=== PATIENT | male | born 1970 | race Caucasian/White ===

== ENCOUNTER 2023-04-04 19:05 | Emergency (ER) | payer OTHER, SELFPAY ==
[2023-04-04 19:35] VITALS: BP 136/77; PULSE 71; RESP 18; TEMP 36.4; O2SAT 100
--- NOTE | 2023-04-04 19:35 | ED.URI ---
HPI - URI/Sore Throat General Chief Complaint: Upper Respiratory Infection Stated Complaint: covid + home test Time Seen by Provider: 04/04/23 19:27 Source: patient Mode of arrival: ambulatory Limitations: no limitations History of Present Illness HPI Narrative: Navdeep is a 53-year-old male patient presenting to the clinic today with complaints testing positive for COVID home. He reports symptoms started on Friday. States he is needing a work note since he has COVID so he will not lose points at work. He denies any chest pain or shortness of breath. Only symptoms are congestion and fatigue. MD elicited complaint: sore throat and nasal congestion Related Data Home Medications Medication Instructions Recorded Confirmed No Home Medications 04/04/23 04/04/23 Allergies Allergy/AdvReac Type Severity Reaction Status Date / Time No Known Allergies Allergy Mild Verified 05/04/10 13:13 Review of Systems Review of Systems: Pertinent positives per HPI. Patient denies any fever, chills, rash, headache, visual changes, dizziness, shortness of breath, chest pain, palpitations, nausea, vomiting, diarrhea, constipation, abdominal pain, or any urinary issues. PMFSH Comments At the time of my signature, I reviewed and agree with the nursing past medical, surgical, social, and family history. There is no relevant family history pertinent to the patient complaint. Exam Narrative: General: Well-developed, well nourished, in no apparent distress Head: Normocephalic, atraumatic Eyes: Pupils equally round and reactive to light bilaterally, EOM intact, sclera and conjunctive clear, no discharge, lids normal Ears: TMs intact and clear, ear canals clear, no drainage, grossly hearing normal. Nose: Nares patent, clear discharge, no inflammation, no sinus tenderness. Mouth: Oral pharynx without lesions or masses, good dentition, MMM. Neck: Supple, trachea midline, no enlargement of anterior or posterior cervical nodes, no thyroid masses or goiter palpable. Cardio: Regular rate and rhythm, s1 and s2 normal, no murmur appreciated. Resp: Clear to auscultation bilaterally, no rhonchi, rales, wheezing or rubs Course Course Emergency Course: Portions of this record may have been created with voice recognition software. Level of Care: Express Care Visit Vital Signs Vital signs: Vital signs reviewed MDM - URI/Sore Throat MDM Narrative Medical decision making narrative: At the time of visit patient is resting on the exam table. Work note was given. Supportive measures were discussed with the patient he voiced understanding discharge instructions agrees to treatment plan. Differential Diagnosis Differential diagnosis: Likely upper respiratory infection, otitis media, sinusitis, viral infection, bronchitis, influenza, pharyngitis and other (COVID) Discharge Plan Discharge Clinical Impression: COVID-19 Patient Disposition: Home, Self-Care Condition: Stable Instructions: Antibiotic Form, How to Recover from COVID-19 at Home (ED) Additional Instructions: May take DayQuil/NyQuil for cold/flu symptoms Increase fluids and stay well hydrated Tylenol/motrin for pain/fever Flonase and OTC antihistamines as directed Vicks vapor rub to open sinuses Sinus rinses for congestion Cepacol spray, cough drops, throat lozenges, warm tea with honey/lemon, gargle salt water to soothe throat BRAT diet for diarrhea Clear liquids x 24 hours then advance as tolerated for nausea/vomiting Go to the ED if you develop a worsening in your condition- high fever not controlled by Tylenol or Motrin, dehydration, weakness, lethargy, shortness of breath, or chest pain. Follow up with your PCP in 3-5 days if symptoms persist. Prescriptions: No Action No Home Medications Follow-up/Referrals: PHYSICIAN,GANG PUNCH OPERATOR [Primary Care Provider] - Stand Alone Forms: Work/School Release IP Time of Disposition: 19:3
== END 2023-04-04 19:43 | disposition home or self-care (01) ==
PROVIDERS: Emergency Provider Nurse Practitioner Family
DX: U07.1 COVID-19 (principal)
CPT/HCPCS: 99211; G0463

== ENCOUNTER 2023-10-16 09:25 | Emergency (ER) | payer BC, SELFPAY ==
--- NOTE | 2023-10-16 09:33 | ED.EAR ---
HPI - Ear Problem General Chief complaint: Ear Stated complaint: Left Ear Irritation Time Seen by Provider: 10/16/23 09:33 Source: patient, RN notes reviewed and old records reviewed Mode of arrival: ambulatory Limitations: no limitations History of Present Illness HPI Narrative: 53-year-old male to Express Care for complaint of left ear pain for 2 days. Patient endorses upper respiratory symptoms that began 10 days ago which have recently improved aside from left ear. Patient denies headache, sore throat, cough, GI complaints. Related Data Home Medications Medication Instructions Recorded Confirmed No Home Medications 04/04/23 10/16/23 Allergies Allergy/AdvReac Type Severity Reaction Status Date / Time No Known Allergies Allergy Mild Verified 10/16/23 09:40 Review of Systems Review of Systems: All systems reviewed & are unremarkable except as noted in HPI and below Constitutional: Constitutional: Reports no additional constitutional complaints Eyes: Eyes: Reports no additional eye complaints ENT: Reports otalgia ( left), Denies headache(s), Denies nasal discharge and Denies sore throat Cardiovascular: Cardiovascular: Reports no additional cardiovascular complaints, Denies chest pain and Denies dyspnea Respiratory: Respiratory: Reports no additional respiratory complaints, Denies cough and Denies dyspnea Musculoskeletal: Musculoskeletal: Reports no additional musculoskeletal complaints Neurologic: Reports system reviewed and no additional complaints, except as documented Psychiatric: Psychiatric: Reports no additional psychiatric complaints PMFSH Comments At the time of my signature, I reviewed and agree with the nursing past medical, surgical, social, and family history. There is no relevant family history pertinent to the patient complaint. Exam Const: General: cooperative, healthy appearing, comfortable, no acute distress, alert and well nourished Nutritional Appearance: well nourished Orientation/consciousness: patient oriented x3 Limitations: no limitations HENMT: Head: normal to inspection Ears: external ears normal, TM normal on the right and TM abnormal dull and with fluid behind the TM on the left and diffuse Face/Nose/Sinus: Normal external nose present, Normal nares present, normal facial exam, No erythema and No edema Face and sinus: normal facial exam, no erythema and no edema Mouth: Yes Normal oral and palatal mucosa present Eyes: General: appearance normal, both eyes and all related structures Neck: Neck: normal visual inspection, full ROM and no meningeal signs Lymphatic: no lymphadenopathy noted and no lymphedema noted Chest: Chest palpation & inspection: normal inspection of the chest Resp: Effort & Inspection: normal respiratory effort and able to speak in complete sentences Auscultation: clear to auscultation bilaterally Cardio: Jugular venous distension: no JVD Rate: regular rate Rhythm: regular rhythm Back/Spine/Pelvis: Cervical Spine: cervical ROM normal Skin: General skin exam: normal color, no rashes or lesions noted and turgor normal Neuro: General: patient oriented x3, gait normal, moves all extremities and no meningeal signs Speech: normal speech Gait exam (Neuro): Normal gait present Extrem: General: normal to inspection, full ROM and capillary refill normal Psych: Appearance: grossly normal and well kempt Course Course Emergency Course: Some parts of this dictation were generated by voice recognition software and may contain typographical and/or grammatical inaccuracies. Level of Care: Express Care Visit Vital Signs Vital signs: Vital Signs Temperature 37.1 C 10/16/23 09:40 Pulse Rate 85 10/16/23 09:40 Respiratory Rate 20 10/16/23 09:40 Blood Pressure 127/79 10/16/23 09:40 Pulse Oximetry 100 10/16/23 09:40 Oxygen Delivery Room Air 10/16/23 09:40 Temperature 37.1 C 10/16/23 09:40 Pulse Rate 85 10/16/23 09:40
[2023-10-16 09:40] VITALS: BP 127/79; PULSE 85; RESP 20; TEMP 37.1; O2SAT 100
== END 2023-10-16 09:55 | disposition home or self-care (01) ==
PROVIDERS: Emergency Provider Nurse Practitioner Family
DX: J06.9 Acute upper respiratory infection, unspecified (principal)
CPT/HCPCS: 99211; G0463

== ENCOUNTER 2024-08-27 03:01 | Day surgery (SDC) | payer BC, SELFPAY ==
[2024-08-26 13:09] VITALS: BMI 30.4
--- NOTE | 2024-08-26 13:14 | PC.NURSE ---
Report to the Outpatient Waiting Room, entrance under the green pavilion located off [facility], at time _1130_ on date _[phone]_. Planned Procedure Time: _130pm_.? Time changes happen often and if your time is changed the preop area will call you the afternoon before. - You and your visitor will be asked to self-screen and do not enter if you have any COVID symptoms. Please call surgeon if you need to reschedule. - A mask is optional within the hospital at this time. Patients may have clear liquids (water, carbonated beverages, clear teas, apple juice) until 3 hours prior to surgery with a maximum of 20 ounces. - No food from midnight until time of surgery and no smoking. This includes no chewing gum, candy or mints. Take only the following medications with a SIP of water on the morning of surgery: __Hydrocodone if needed.___ DO NOT STOP ANY OF YOUR OTHER PRESCRIPTION MEDICATIONS PRIOR TO SURGERY EXCEPT THE FOLLOWING Medications to discontinue per physician ____Supplements____ Date to take last dose___Stop now.___ Please no make-up, nail italian, hairspray, perfume, deodorant, or body powder the day of surgery.? No jewelry (including any body piercings) or valuables the day of surgery, leave them at home.? Please take a shower or bath the night before, or the morning of, surgery with an antibacterial soap.? Wear comfortable, loose fitting clothing. - Jewelry must be removed prior to entering the operating room.? Rings and piercings that are not removed may be cut off. - The hospital will not accept responsibility for valuables.? - Please leave all valuables, including medications, at home the day of surgery. If you are going home after surgery, a licensed batch mixing truck driver must drive you home.? - NO public transportation without another adult if you receive anesthesia. - We recommend that an adult stay with you for 24 hours following discharge. - We also recommend that you do not drive, make important decision, drink alcoholic beverages, or take any drugs that were not prescribed by your health care provider for at least 24 hours after your discharge time. Follow any additional instructions given to you from your surgeon. Telephone instructions given to __Navdeep___and asked if any additional questions and then verbalized understanding. Patient advised to call surgeon office or pre surgery nurse liaison [phone] if any additional questions.
[2024-08-27] VITALS (9 sets, daily range): BP systolic 137–163; BP diastolic 75–99; PULSE 65–77; RESP 12–15; TEMP 36.4–36.7; O2SAT 94–99
--- NOTE | ~2024-08-27 | XR_ITS ---
EXAMINATION: XR surgery orthopedic DATE: 08/27/2024 15:49 INDICATION: ORIF left wrist fracture TECHNIQUE: 3 fluoroscopic images of the left wrist were obtained during procedure performed by Dr. Ravi fishman. Radiologist was not present for the imaging or procedure. The amount of fluoroscopy time used during this procedure was 8.4 minutes. Total DAP was 3.52 Gycm^2. COMPARISON: 08/26/2024 FINDINGS: Interval open reduction internal fixation of the previously seen comminuted intra-articular distal le ft radial fracture which appears in near-anatomic alignment with volar T plate and screw fixation. Ne utral tilt of the distal articular surface with no evident fracture gap or incongruity at the articul ar cortex. No other fractures identified. Visualized joint spaces are normal. IMPRESSION: 1. Near-anatomic alignment with reduction and internal fixation of an intra-articular distal left rad ial fracture. Reviewed, dictated and finalized at location A. AIR WARFARE OPERATIONS OFFICER IMPRESSION: 1. Near-anatomic alignment with reduction and internal fixation of an intra-art icular distal left radial fracture.
[2024-08-27] MEDS: ACETAMINOPHEN 500 MG TABLET 1000 MG PO (12:30)
[2024-08-27] MEDS: CELECOXIB 200 MG CAPSULE PO (12:30)
[2024-08-27] MEDS: LACTATED RINGERS 1,000 ML 30 ML IV CONT ×2 (12:30→15:57)
--- NOTE | 2024-08-27 13:12 | P.PNAN_ITS ---
Anes - Initial Pre Proc Eval Procedure: Operation Date: 08/27/24 13:30 Proposed Procedures p Open Reduction Internal Fixation Left Wrist - Elmo Rosenberg MD Date/Time: 08/27/24 13:12 Surgeon: Elmo Rosenberg MD Pre Op Diagnosis: Left Distal Radius Fracture Patient Data Age: 54 Gender: M Height: 1.73 m Weight: 89.1 kg Last Vital Signs Temp 36.7 C 08/27/24 12:30 Pulse 70 08/27/24 12:30 Resp 14 08/27/24 12:30 BP 148/75 H 08/27/24 12:30 Pulse Ox 99 08/27/24 12:30 O2 Del Method Room Air 08/27/24 12:30 Allergies Allergy/AdvReac Type Severity Reaction Status Date / Time No Known Allergies Allergy Mild Verified 08/27/24 13:01 Home Medications ?Medication ?Instructions ?Recorded ?Confirmed ?Type hydrocodone 5 mg-acetaminophen 325 1 tablet PO Q8H PRN pain 0 days 08/20/24 08/26/24 Rx mg tablet #20 tabs omega 1-nle-usg-fish oil 1,000 mg 1 cap PO DAILY 08/26/24 08/27/24 History (120 mg-180 mg) capsule (Fish Oil) Patient hx anesthesia problems: none Family hx anesthesia problems: none Results Review: All pre-operative results and documents have been reviewed as part of the pre- operative evaluation. [facility] Social History Social History (Updated 08/27/24 @ 09:55 by Nakia Thrasher [facility]) Social History: caffeine use Smoking status: Never smoker Alcohol intake: current Substance use type: does not use Living arrangements: with family Occupation/Education: occupation Additional occupation/education comments: [employer] Gender identity (if verbalized by the patient): Male Anes - Eval Final PreProcedure Day of Procedure 08/27/24 13:12 Patient weight: overweight Heart: regular rate and rhythm Lungs: clear to auscultation Airway: Mallampati scale class II Neurological: alert and oriented Last oral intake: >/= 8 hours ASA classification: I Emergent: no Anesthetic plan: proceed Anesthesia type and monitoring: general LMA and standard monitoring Results Review: All pre-operative results and documents have been reviewed as part of the pre- operative evaluation. Informed Consent: The patient's anesthetic plan and its attendant risks and benefits were discussed with the patient/family/POA. Questions were solicited and answers provided to the satisfaction of the patient/family/POA.
--- NOTE | 2024-08-27 13:43 | WPDHPUPDATE1 ---
History and Physical Update Update Date/Time: 08/27/24 13:43 History and Physical has been reviewed, including an updated exam of the patient. There are NO changes in the patient's condition. Risks, benefits, and alternatives have been discussed and questions answered. Patient agrees to proceed with procedure.
[2024-08-27] MEDS: ceFAZolin 2 GM/D5W 50 ML 2 GM/50 ML BAG IVPB (13:48)
[2024-08-27] MEDS: BUPivacaine HCL 0.5% 10 ML AMP INFILTRATE (14:10)
--- NOTE | 2024-08-27 16:01 | W.PM.PROC2 ---
Procedure Note - Detailed Date of Procedure 08/27/24 Pre-op Diagnosis Left Distal Radius Fracture Post-op Diagnosis Same Procedure Performed ORIF LEFT DISTAL RADIUS FRACTURE Surgeon Elmo Rosenberg MD Anesthesia General Description of Procedure THE LEFT UPPER EXTREMITY WAS PREPPED AND DRAPED IN THE STERILE FASHION. A STANDARD HENRYS APPROACH WAS USED TO THE VOLAR WRIST. DISSECTION THROUGH THE SKIN AND SUBCUTANEOUS TISSUE WAS PREFORMED. THE FCR TENDON WAS IDENTIFIED. THE RADIAL ARTERY WAS IDENTIFIED AND RETRACTED. THE THE FLEXOR POLLICIS AND THE COMMON FLEXOR TENDONS WERE IDENTIFIED AND RETRACTED. THE PRONATOR QUADRATUS WAS IDENTIFIED AND INCISED EXPOSING THE FRACTURE. IT WAS HIGHLY COMMINUTED. A TRIAL REDUCTION WAS PREFORMED AND FIXED WITH A K WIRE. NEXT A BIOMET DISTAL RADIUS LOCKING PLATE WAS PLACED BRIDGING THE FRACTURE FRAGMENTS. SCREWS WERE PLACED DISTALLY AND PROXIMALLY. THE DISTAL SCREWS WERE IMAGED AND FOUND TO BE EXTRA ARTICULAR. C ARM IMAGES WERE PREFORMED AND HARDWARE AND FRACTURE FRAGMENTS WERE IN GOOD POSITION. THE TOURNIQUET WAS DEFLATED AND THE BLEEDERS WERE CAUTERIZED. THE FASCIA AND SUB CUTANEOUS LAYERS WERE APPROXIMATED WITH 3-0 VICRYL AND 3-0 STRATAFIX THEN DERMABOND FOR THE SKIN. STERILE DRESSING AND SPLINT WAS APPLIED. PATIENT WAS EXTUBATED. Estimated Blood Loss 20 Complications No immediate complications Condition Stable Disposition PACU
[2024-08-27] MEDS: fentaNYL CITRATE INJ (*CRX) 100 MCG/2 ML VIAL 25 MCG IV PUSH (16:20)
[2024-08-27] MEDS: ONDANSETRON INJ 4 MG/2 ML VIAL IV PUSH (16:39)
== END 2024-08-27 18:12 | disposition home or self-care (01) ==
PROVIDERS: Visit Provider Orthopaedic Surgery
PROC: (CPT 25575; principal; 2024-08-27 13:30)
DX: S52.572A Other intraarticular fracture of lower end of left radius, initial encounter for closed fracture (principal); W01.0XXA Fall on same level from slipping, tripping and stumbling without subsequent striking against object, initial encounter; Y93.73 Activity, racquet and hand sports
CPT/HCPCS: 25608; 99199; A9270; C1713; J0690; J1100; J1171; J2250; J2405; J2704; J3010; J7120

== ENCOUNTER 2024-11-23 10:30 | Outpatient (RCR) | payer BC, SELFPAY ==
--- NOTE | 2024-09-17 12:03 | OTOPEVAL1 ---
Assessment and note entered by Mike Washington, OTR/Jennifer, CHT OT Evaluation Information 09/17/24 Assessment Status Evaluation Diagnosis S52.572A left distal radius fracture ICD-10 Condition Codes (OT) Joint stiffness of left wrist M25.632 Subjective Information s/p ORIF 08/27/24. Patient is right handed. He reports difficulties using his left hand for ADLs and any 2 handed tasks. He reports he has been icing, elevating, and trying to move his fingers as much as possible. Reporting minimal pain, just stiffness/tightness. Reported Pain Level Pain Score 0: Self Report Assessment OT Clinical Summary Patient referred to OT with dx of left distal radius fx s/p ORIF ~3 weeks ago. He presents with limited left UE use due to orthopedic precautions, weakness, stiffness, and edema. Skilled OT indicated to for HEP instruction/progression, therapeutic exercise, modalities, manual therapy, and functional therapeutic activities to facilitate improved functional use of his left UE for ADLs. Plan of Care Interventions Therapeutic Exercise,Manual Therapy,Therapeutic Activities,Hot Pack/Cold Pack,Paraffin OT Services Indicated Yes Treatment Frequency and 2x/week for 8 visits Duration These treatments will address the objective and functional deficits as defined above. The patient will be advanced safely and appropriately in order for the patient to progress towards his/her prior level of function. Additional exercises will be introduced and as well as a comprehensive home exercise program upon discharge, if needed, ?to ensure carryover of functional gains achieved in the clinic. This treatment plan has been reviewed and agreement upon by the patient.
--- NOTE | 2024-09-17 12:03 | OPREHPOC ---
Outpatient Therapy Plan of Care This is a Multidisciplinary Plan of Care that may contain components documented by all disciplines (PT, OT, and ST.) OT Problem 1 OT Problem #1 Knowledge Deficit OT Goal 1 Goal / Goal Update Patient to be independent with instructed materials. Target Visit 8 OT Problem 2 OT Problem #2 Impaired Range of Motion OT Goal 1 Goal / Goal Update Improve functional left UE active ROM of the left UE to improve functional flexibility for ADLs: - left forearm supination to 70 - left forearm pronation to 70 - left wrist flexion to 50 - left wrist extension to 50 Target Visit 8 OT Problem 3 OT Problem #3 Impaired Strength OT Goal 1 Goal / Goal Update *Hold strengthening until 6 weeks post op (10/08/24) : - Patient to be able to progress left forearm and wrist strengthening to 1 lb x10 reps. Target Visit 8 OT Goal 2 Goal / Goal Update Patient to improve left clinic nurse strength for ADLs as demonstrated by being able to complete putty HEP with yellow putty x5 minutes without a rest break. Target Visit 8
--- NOTE | 2024-10-25 11:10 | OTOPPROG ---
Assessment and note entered by Mike Washington, THALIA/Jennifer, CHT OT Progress Update 10/25/24 Assessment Status Progress Diagnosis S52.572A left distal radius fracture ICD-10 Condition Codes (OT) Joint stiffness of left wrist M25.632 Subjective Information - s/p ORIF 08/27/24 - Patient reports he is making progress with functional ROM and hand/UE use. He is back to playing pickle ball, tying his shoes, opening doors, carrying bags, and getting the milk out of the fridge depending on how heavy the milk is. He reports he feels limited with heavy lifting. He reports he continues to feel stiff. He continues to have difficulties opening his son's cups. - Patient reports good compliance with HEP. ROM measurements: Supination improved from 20 to 40 degrees Pronation improved from 50 to 60 degrees Wrist flexion improved from 25 to 40 Wrist extension improved from 10 to 35 Assessment OT Clinical Summary Patient referred to OT with dx of left distal radius fx s/p ORIF ~8 weeks ago. He is making steady progress with improved flexibility, strength, and use of his left UE. He continues to demonstrate deficits with ROM, strength, and use, however. Continued skilled OT indicated to for HEP progression, therapeutic exercise, modalities, manual therapy, and functional therapeutic activities to facilitate improved functional use of his left UE for ADLs. Plan of Care Interventions Therapeutic Exercise,Manual Therapy,Therapeutic Activities,Hot Pack/Cold Pack,Paraffin OT Services Indicated Yes Treatment Frequency and 2x/week for 8 visits Duration These treatments will address the objective and functional deficits as defined above. The patient will be advanced safely and appropriately in order for the patient to progress towards his/her prior level of function. Additional exercises will be introduced and as well as a comprehensive home exercise program upon discharge, if needed, ?to ensure carryover of functional gains achieved in the clinic. This treatment plan has been reviewed and agreement upon by the patient.
--- NOTE | 2024-10-25 11:11 | OPREHPOC ---
Outpatient Therapy Plan of Care This is a Multidisciplinary Plan of Care that may contain components documented by all disciplines (PT, OT, and ST.) OT Problem 1 OT Problem #1 Knowledge Deficit OT Goal 1 Goal / Goal Update Patient to be independent with instructed materials. ---OT POC UPDATE 10/25/24--- Met, continue as HEP is progressed Target Visit 16 OT Problem 2 OT Problem #2 Impaired Range of Motion OT Goal 1 Goal / Goal Update Improve functional left UE active ROM of the left UE to improve functional flexibility for ADLs: - left forearm supination to 70 - left forearm pronation to 70 - left wrist flexion to 50 - left wrist extension to 50 ---OT POC UPDATE 10/25/24--- Patient is progressing with all of the above ROM, not met, continue goal Target Visit 16 OT Problem 3 OT Problem #3 Impaired Strength OT Goal 1 Goal / Goal Update Patient to be able to progress left forearm and wrist strengthening to 1 lb x10 reps. ---OT POC UPDATE 10/25/24--- Met, able to complete wtih 2 lbs., progress to 3 then 4 lbs. Target Visit 16 OT Goal 2 Goal / Goal Update Patient to improve left technical support specialist strength for ADLs as demonstrated by being able to complete putty HEP with yellow putty x5 minutes without a rest break. ---OT POC UPDATE 10/25/24--- Met - Upgrade goal: Patient to increase left technical support specialist strength from 55 lbs. to 65 lbs. Target Visit 16
--- NOTE | 2024-11-23 11:22 | OTOPDC ---
Assessment and note entered by Mike Washington, THALIA/Jennifer, CHT OT Discharge Summary 11/23/24 Diagnosis S52.572A left distal radius fracture ICD-10 Condition Codes (OT) Joint stiffness of left wrist M25.632 Subjective Information - s/p ORIF 08/27/24 - Patient reports he is making progress with functional ROM and hand/UE use. He is back to being able to open jars, his son's cups, lifting and carrying heavier objects, lifting the milk out of the fridge. - Patient reports good compliance with HEP. ROM measurements (compared to last month) - Supination remained at 40 degrees Pronation remained at 60 degrees Wrist flexion remained at 40 Wrist extension remained at 35 Reported Pain Level Pain Score 0: Self Report Assessment OT Clinical Summary Patient referred to OT with dx of left distal radius fx s/p ORIF ~12 weeks ago. His ROM measurements of the forearm and wrist have remained unchanged since last re-evaluation. Strength-chacon he is WFL. Had a long discussion about the importance of daily HEP compliance with stretching, returning to unrestricted use, and returning to the gym. He demonstrates understanding. Plan to wrap up formal therapy at this time and discharge with HEP. Plan of Care OT Services Indicated No
== END 2024-11-23 16:16 | disposition home or self-care (01) ==
LOC: ANHOT 10:30
PROVIDERS: PCP Orthopaedic Surgery; Visit Provider Orthopaedic Surgery
DX: S52.572A Other intraarticular fracture of lower end of left radius, initial encounter for closed fracture (principal)
CPT/HCPCS: 97018; 97110; 97530

== ENCOUNTER 2024-12-21 08:48 | Outpatient (RCR) | payer BC, SELFPAY ==
--- NOTE | 2024-12-21 09:36 | OTOPEVAL1 ---
Assessment and note entered by Mike Washington, VERENICER/Jennifer, CHT OT Evaluation Information 12/21/24 Diagnosis S52.572A Other intraarticular fx of lower end of left radius Subjective Information Patient is s/p ORIF of the left distal radius Aug 27, 2024. He completed 2 months of therapy and reached a progress plateau. Due to the plateau 2 LUCY dynamic orthotics were ordered, one for supination and one for wrist flexion/extension. Patient reports he returned to work and functionally this is going well. He reports no pain, just residual tightness and stiffness. Assessment OT Clinical Summary Patient fractured his left distal radius and underwent an ORIF in Aug 2024. He completed a few months of therapy, however he was reaching a progress plateau, so therapy was discontinued with HEP. He has been working on his HEP x1 month and returns today demonstrating progress with supination, pronation, and wrist flexion and extension. He also demonstrates improvements with basting marker strength. Plan to resume therapy to continue to work on aggressive ROM in the clinic while patient utilizes LUCY orthotics at home to facilitate optimal functional ROM, strength, and use of his left UE. Plan of Care Interventions Therapeutic Exercise,Manual Therapy,Therapeutic Activities,Check Out for Orthotic/Prosthetic, Paraffin OT Services Indicated Yes Treatment Frequency and 1-2x/week for 8 visits Duration These treatments will address the objective and functional deficits as defined above. The patient will be advanced safely and appropriately in order for the patient to progress towards his/her prior level of function. Additional exercises will be introduced and as well as a comprehensive home exercise program upon discharge, if needed, ?to ensure carryover of functional gains achieved in the clinic. This treatment plan has been reviewed and agreement upon by the patient.
--- NOTE | 2024-12-21 09:37 | OPREHPOC ---
Outpatient Therapy Plan of Care This is a Multidisciplinary Plan of Care that may contain components documented by all disciplines (PT, OT, and ST.) OT Problem 1 OT Problem #1 Knowledge Deficit OT Goal 1 Goal / Goal Update Patient to be independent with instructed materials. Target Visit 8 OT Problem 2 OT Problem #2 Impaired Range of Motion OT Goal 1 Goal / Goal Update Patient to increase active ROM of the left UE to improve functional use for ADLs: 1. forearm supination from 45 to 70 2. wrist flexion from 45 to 60 3. wrist extension from 40 to 60 Target Visit 8
--- NOTE | 2025-04-18 13:07 | OTOPDC ---
Assessment and note entered by Mike Washington, OTR/L, CHT OT D/C Notification 04/18/25 Patient has not returned for therapy since . He was being fitted for a LUCY brace. He did not follow up after the initial evaluation. Discharging at this time.
== END 2025-03-09 13:34 | disposition home or self-care (01) ==
LOC: ANHOT 08:48
PROVIDERS: Visit Provider Orthopaedic Surgery
DX: S52.572D Other intraarticular fracture of lower end of left radius, subsequent encounter for closed fracture with routine healing (principal)
CPT/HCPCS: 97165

== ENCOUNTER 2025-03-09 13:37 | Outpatient (RCR) | payer BC, SELFPAY | END 2025-03-09 13:38 | disposition home or self-care (01) | LOC: ANHOT 13:37 | PROVIDERS: Visit Provider Orthopaedic Surgery | DX: S52.572D Other intraarticular fracture of lower end of left radius, subsequent encounter for closed fracture with routine healing (principal) | CPT/HCPCS: 99199 ==